=== PATIENT | male | born 1945 | race Hispanic/Latino ===

== ENCOUNTER → 2025-04-11 | Outpatient (CLI) | payer OTHER ==
[~2025-04-11] MED LIST: GADOTERATE MEGLUMINE 10 MMOL/20 ML VIAL IV ONE
--- NOTE | 2025-04-11 22:06 | HMCIMG ---
EXAM: MR Lumbar Spine Without and With Intravenous Contrast. CLINICAL HISTORY: Lumbar radiculopathy. TECHNIQUE: Magnetic resonance images of the lumbar spine in multiple planes. CONTRAST: Yes. COMPARISON: None. FINDINGS: For this examination, spinal levels were labeled assuming five non-rib bearing, lumbar-type vertebrae with the inferior labeled L5. No acute fracture. Moderate to severe dextroscoliosis. 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 Multilevel spondylosis is evident by marginal osteophytes and facet joint arthropathy. Multilevel disc desiccation and degenerative disc height reduction noted, more pronounced at the L2-L3 level. Normal vertebral body heights. Modic type I changes in the contiguous endplates at the L5-S1 level. Mild marrow edema in the inferior endplates of the T11, L3, and superior endplate of L1 vertebral bodies, likely degenerative change. Modic type II changes in the contiguous endplates at the T11-T12 through L4-L5 levels. Conus medullaris terminates at the T12-L1 level. No abnormal epidural masses. The surrounding soft tissues are unremarkable. Individual spinal levels are described as follows: T12-L1: 3 mm disc osteophyte complex bulge causing mild indentation on the anterior thecal sac and mild bilateral foraminal narrowing. No lateral recess stenosis. L1-L2: 5 mm left predominant disc osteophyte complex bulge and facet joint arthropathy causing mild indentation on the anterior thecal sac and mild bilateral foraminal narrowing. No lateral recess stenosis. L2-L3: 4 mm left predominant disc osteophyte complex bulge and facet joint arthropathy causing mild indentation on the anterior thecal sac and mild bilateral foraminal narrowing. No lateral recess stenosis. L3-L4: 3 mm disc osteophyte complex bulge and facet joint arthropathy causing mild indentation on the anterior thecal sac and mild bilateral foraminal narrowing. No lateral recess stenosis. L4-L5: 7 mm anterolisthesis of L4 over L5 with uncovering of the posterior disc and facet joint arthropathy causing mild indentation on the anterior thecal sac, moderate right foraminal narrowing, and mild left foraminal narrowing. No lateral recess stenosis. L5-S1: 6 mm anterolisthesis of L5 over S1 with uncovering of the posterior disc, marginal osteophytes, and facet joint arthropathy causing mild indentation on the anterior thecal sac and moderate bilateral foraminal narrowing. No lateral recess stenosis. IMPRESSION: Moderate to severe dextroscoliosis. 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 Moderate multilevel spondylosis and degenerative disc changes. Modic type I changes in the contiguous endplates at the L5-S1 level. Mild marrow edema in the inferior endplates of the T11, L3, and superior endplate of L1 vertebral bodies, likely degenerative change. Modic type II changes in the contiguous endplates at the T11-T12 through L4-L5 levels. Mild indentation on the anterior thecal sac and mild bilateral foraminal narrowing at the T12-L1, L1-L2, L2-L3, and L3-L4 levels. Mild indentation on the anterior thecal sac, moderate right foraminal narrowing, and mild left foraminal narrowing at the L4-L5 level. Mild indentation on the anterior thecal sac and moderate bilateral foraminal narrowing at the L5-S1 level. /[place]
== END | disposition home or self-care (01) ==
LOC: EDBD 04-03 09:30 → RAH 12:50
PROVIDERS: ATTEND Family Medicine
DX: M47.26 Other spondylosis with radiculopathy, lumbar region (principal); M47.818 Spondylosis without myelopathy or radiculopathy, sacral and sacrococcygeal region; M51.16 Intervertebral disc disorders with radiculopathy, lumbar region; M43.17 Spondylolisthesis, lumbosacral region; M48.07 Spinal stenosis, lumbosacral region; M41.86 Other forms of scoliosis, lumbar region; M25.78 Osteophyte, vertebrae; R60.0 Localized edema
CPT/HCPCS: 72158; A9575